=== PATIENT | male | born 2000 | race Caucasian/White ===

== ENCOUNTER 2024-01-24 11:45 | Emergency (ER) | payer MEDICAID, SELFPAY ==
[2024-01-24 11:47] VITALS: BP 141/83; PULSE 103; RESP 18; TEMP 37.7; O2SAT 100
--- NOTE | 2024-01-24 12:23 | ED.GENADUL_ITS ---
Discharge Plan Disposition Patient Disposition: Home Condition: Stable Discharge Details Clinical Impression: Chronic dental infection Primary Care Provider: Sindy Delacruz ED Provider: Micha Bennett Home Meds and New Rx's Prescriptions: New amoxicillin-pot clavulanate 875-125 mg tablet 1 tab PO BID 14 Days Qty: 28 0RF chlorhexidine gluconate 0.12 % mouthwash 15 ml mucous membrane BID Qty: 1893 0RF Discharge Instructions Instructions: Chlorhexidine (Into the mouth), Amoxicillin/Clavulanate Potassium (By mouth), Toothache (ED) Additional Instructions: You were seen in the emergency department for your severe dental decay with likely exacerbation by infection. I have sent prescription oral antibiotics to [place] and was filled. As well as a antiseptic mouth rinse. Please use these as directed. Please purchase [id number] Anbesol and apply to the area of pain as a topical numbing agent, perform salt water gargles 3 times per day with warm salt water, please make arrangements to follow-up with dentist or you will have further exacerbations of dental pain. Please return to the emergency department for any severe vocal changes, increasing facial swelling and redness, chest pain, inability to eat tolerate p.o. intake of hydration and nutrition, inability to range your jaw, excessive drooling. Referrals: Sindy Delacruz [Primary Care Provider] - Discharge Data Discharge Date/Time-TO BE ENTERED AT DEPARTURE: 01/24/24 12:43 HPI General Date/Time Provider Initiated Documentation: 01/24/24 11:51 . HPI Narrative: 23 year-old male presents to ED today by POV/ambulating with a chief complaint of dental pain, acute on chronic diffuse dental decay with onset over the past few days. Quality described as throbbing pain in L upper mouth, no radiation to fever, trismus, vocal changes, excessive drooling. Severity is described as 0/10. Palliating factors include nothing specific attempted. Provoking factors include nothing specific. Events leading up to the incident/Associated Symptoms: Patient does not have a dentist. Patient not anticoagulated. Related Data Home Medications Medication Instructions Recorded Confirmed amoxicillin 875 mg-potassium 1 tab PO BID dental infection 14 01/24/24 clavulanate 125 mg tablet days #28 tabs chlorhexidine gluconate 0.12 % 15 ml mucous membrane BID dental 01/24/24 mouthwash caries #1,893 mL Previous Rx's Medication Instructions Recorded amoxicillin 875 mg-potassium 1 tab PO BID dental infection 14 01/24/24 clavulanate 125 mg tablet days #28 tabs chlorhexidine gluconate 0.12 % 15 ml mucous membrane BID dental 01/24/24 mouthwash caries #1,893 mL Allergies Allergy/AdvReac Type Severity Reaction Status Date / Time No Known Allergies Allergy Unverified 01/24/24 11:51 General Stated Complaint: DentalOral NICK: 4 Review of Systems All systems reviewed & are unremarkable except as noted in HPI and below Exam Narrative Exam Narrative: GENERAL APPEARANCE: Well-nourished, non-toxic, awake and alert, atraumatic, no acute distress. SKIN: Warm, pink, dry, intact, without rashes/lesions/ulcerations. HEAD: Normocephalic, atraumatic, normal hair distribution for gender/age. EYES: Pupils PERRLA, EOMs intact without nystagmus, normal conjunctiva, no exudates on lids/lashes. ENT: Nares patent, no circumoral cyanosis, no facial swelling, diffuse severe dental decay, innumerable caries, L upper ginigival tenderness without visible abscess, no trismus, no excessive drooling, uvula midline without tonsillar swelling NECK: Supple, trachea midline, painless cervical ROM. LUNGS/CHEST: Non-labored respirations, normal A/P diameter, symmetrical expansion, no chest wall deformity HEART (CV/PV): No peripheral edema, no JVD. ABDOMEN: Soft, non-distended, no guarding. MSK: Normal ROM, no swelling/deformity to bilateral UEs or LEs, moving all extremities without weakness, no cyanosis, spine midline without tenderness, normal curvature. NEURO: Mental Status AAOx4 - alert to person, place, time, events No facial droop, no forehead involvement. Motor: No focal weakness - strength 5/5 in bilateral UEs and LEs, proximal and distal, symmetric. Sensory: sensation intact to light touch globally. Gait normal: patient ambulated without ataxia into ED room. PSYCH: euthymic, cooperative, pleasant, appropriate speech Course Vital Signs Vital signs: Vital Signs Temperature 37.7 C H 01/24/24 11:47 Pulse 103 H 03/03/24 11:47 Respiratory Rate 18 01/24/24 11:47 Blood Pressure 141/83 H 01/24/24 11:47 Pulse Oximetry 100 01/24/24 11:47 Temperature 37.7 C H 01/24/24 11:47 Temperature Source Skin 01/24/24 11:47 Pulse 103 H 01/24/24 11:47 Respiratory Rate 18 01/24/24 11:47 Blood Pressure 141/83 H 01/24/24 11:47 Blood Pressure Position Sitting 01/24/24 11:47 Pulse Oximetry 100 01/24/24 11:47 Oxygen Delivery Method Room Air 01/24/24 11:47 Oxygen Flow Rate 0 01/24/24 11:47 Pain Level 0 01/24/24 11:47 Medical Decision Making This dictation utilizes [id number] dictation software and may contain unedited grammatical errors. 23 y/o M presents to ED today with a chief complaint of dental pain, L upper. Patient has severe chronic diffuse dental decay with innumerable caries - no trismus, no vocal changes, had some mild facial swelling this morning. Patients' medical history: negative. Pertinent exam findings / vital signs include ENT: Nares patent, no circumoral cyanosis, no facial swelling, diffuse severe dental decay, innumerable caries, L upper ginigival tenderness without visible abscess, no trismus, no excessive drooling, uvula midline without tonsillar swelling. Differential / pathologies of concern include dental infection, severe dental decay, facial cellulitis. Diagnostic studies of: -none. Interventions of: -Outpatient Rx for Augmentin. ED Course/Assessment/Plan: 23-year-old male with severe diffuse dental decay presents with left upper dental pain with some facial swelling this morning likely dependent in the lower eyelids, shows a picture. This has resolved by time of evaluation, I did business and financial counsel him on starting antibiotics and calling any and all dentist to get on ca ncellation list for follow-up. Provided chlorhexidine mouth rinse and recommended salt water gargles as well as therapeutic dosing of Tylenol and ibuprofen as well as topical Anbesol. Findings not consistent with peritonsillar abscess, trismus, large gingival abscess. Disposition of chronic dental infection. Patient verbalized understanding of the plan and return to ED criteria and engaged in shared decision making. Medical Records Medical records reviewed: Yes I reviewed the patient's medical records. Quality:[facility] Health Related Social Needs: No Data to Display PFSH All Active Problems (Updated 01/24/24 @ 12:30 by JAIME Murray) Chronic dental infection (Acute) Social History Smoking risk assessment performed?: No
== END 2024-01-24 12:43 | disposition home or self-care (01) ==
PROVIDERS: Emergency Provider Physician Assistant; PCP Family Medicine
DX: R68.84 Jaw pain (principal); K04.7 Periapical abscess without sinus
CPT/HCPCS: 99283